=== PATIENT | female | born 1950 | race Two or more races ===

== ENCOUNTER 2017-01-12 22:24 | Emergency (ER) | payer MEDICARE, MEDICAID ==
[~2017-01-12] VITALS: Ht 157.5 cm; Wt 63.5 kg
--- NOTE | 2017-01-12 22:39 | NUR ---
CALLED NURSING SUP. FOR TELE BED
--- NOTE | 2017-01-12 22:43 | NUR ---
PT IS GOING TO CT [facility]IA [facility].
--- NOTE | 2017-01-12 22:58 | NUR ---
PT RETURNED FROM CT.
--- NOTE | 2017-01-12 23:15 | NUR ---
PT STATED THAT SHE FELT LIKE SHE HAD TO PEE. PT PLACED ON BED FAM.
[2017-01-12 23:23] LABS: BASOPHILS # (AUTO) 0.1 /CMM (0.0-0.2); BASOPHILS % (AUTO) 1.1 % (0.0-2.0); EOSINOPHILS # (AUTO) 0.4 /CMM (0.0-0.7); EOSINOPHILS % (AUTO) 4.5 % (0.0-6.0); HEMATOCRIT 36 % (33-45); LYMPHOCYTES # (AUTO) 3.9 /CMM (0.8-4.8); LYMPHOCYTES % (AUTO) 43.6 % (20.0-44.0); MEAN CORPUSCULAR HEMOGLOBIN 29 PG (26.0-33.0); MEAN CORPUSCULAR HGB CONC 33 g/dl (31.0-36.0); MEAN CORPUSCULAR VOLUME 89 fL (82-100); MONOCYTES # (AUTO) 0.5 /CMM (0.1-1.30); MONOCYTES % (AUTO) 5.8 % (2.0-12.0); PLATELET COUNT (AUTO) 286 /CMM (150-450); RDW COEFFICIENT OF VARIATION 13.3 (11.5-15.0); RED BLOOD CELL COUNT(AUTO) 4.08 MIL/uL (4.0-5.2); WHITE BLOOD COUNT (AUTO) 8.9 K/uL (4.3-11.0)
[2017-01-12 23:35] LABS: INR 2.61 (0.87-1.13); PROTHROMBIN TIME 29.7 SECS (9.5-12.7)
[2017-01-12 23:42] LABS: TROPONIN I < 0.017 ng/mL (0.00-0.056)
[2017-01-12 23:45] LABS: CALCIUM, SERUM 8.7 mg/dL (8.5-10.1); CARBON DIOXIDE 26 mmol/L (21-32); CHLORIDE 106 mmol/L (98-107); CREATININE 0.9 mg/dL (0.6-1.3); GLUCOSE 135 mg/dL (74-106); POTASSIUM 4.2 mmol/L (3.5-5.1); SODIUM SERUM 142 mmol/L (136-145); UREA NITROGEN, BLOOD 10 mg/dL (7-18)
[2017-01-12 23:49] LABS: ALANINE AMINOTRANSFERASE 23 U/L (12-78); ALBUMIN 3.4 g/dL (3.4-5.0); ALKALINE PHOSPHATASE 60 U/L (46-116); ASPARTATE AMINOTRANSFERASE 20 U/L (15-37); BILIRUBIN,DIRECT 0.1 mg/dL (0.0-0.2); BILIRUBIN,TOTAL 0.7 mg/dL (0.2-1.0); TOTAL PROTEIN, SERUM 6.9 g/dL (6.4-8.2)
[2017-01-13 00:08] LABS: APPEARANCE,URINE CLEAR (CLEAR); BILIRUBIN,URINE NEGATIVE (NEGATIVE); BLOOD, URINE NEGATIVE Ery/uL (NEGATIVE); COLOR,URINE YELLOW (YELLOW); KETONES,URINE NEGATIVE (NEGATIVE); LEUKOCYTE ESTERASE ,URINE NEGATIVE (NEGATIVE); NITRITE, URINE NEGATIVE (NEGATIVE); PROTEIN,URINE NEGATIVE (NEGATIVE); UGLUCOSE NEGATIVE (NEGATIVE); UROBILINOGEN,URINE 0.2 EU/dL (0.2)
--- NOTE | 2017-01-13 00:25 | NUR ---
Patient does not wish to proceed with medical care recommended by Dr. DIAZ. Patient given information related to possible complications, up to and including , which could occur as a result of leaving the hospital at this time. Patient verbalizes understanding of risks involved due to leaving against medical advice. Patient has signed AMA form.
--- NOTE | 2017-01-13 00:41 | NUR ---
PT WAS ASSISTED INTO HER CLOTHES. PT REC'D PAPER SCRUB PANTS. PT WAS ASSISTED TO THE AND TAKEN TO THE CAR. Patient discharged to home AGAINST DR'S ADVICE. Written and verbal after care instructions given. Patient verbalizes understanding of instruction. PT'S FAMILY EXPRESSED VERBAL UNDERSTANDING. VSS. IV removed. Catheter intact and site benign. Pressure and 4x4 applied to site. No bleeding noted.
[2017-01-13 00:44] VITALS: BP 97/76
== END 2017-01-13 00:45 | disposition home or self-care (01) ==
LOC: ER 22:24
DX: R42 Dizziness and giddiness (principal); R53.1 Weakness; R51 Headache; Z86.73 Personal history of transient ischemic attack (TIA), and cerebral infarction without residual deficits; E11.9 Type 2 diabetes mellitus without complications; I10 Essential (primary) hypertension
CPT/HCPCS: 36415; 70450; 71010; 80048; 80076; 81001; 82962; 84484; 85025; 85730; 87081; 93005; 99285; A4606; 81000-TC; Z7610

== ENCOUNTER 2018-05-10 18:24 | Emergency (ER) | payer MEDICARE, OTHER ==
[~2018-05-10] VITALS: Ht 157.5 cm; Wt 79.4 kg
--- NOTE | 2018-05-10 18:30 | NUR ---
AAOX3, BIB FAMILY FROM HOME C/O L FOOT PAIN S/P GLF, -KO. RR IS EVEN AND UNLABORED WITH NAD NOTED. SKIN IS WARM AND DRY. AWAITING MD FOR EVAL.
--- NOTE | 2018-05-10 18:45 | NUR ---
DR NGO AT BS FOR EVAL.
[2018-05-10] MEDS ORDERED: ONDANSETRON 4 MG TAB.RAPDIS SL ONE (19:00)
[2018-05-10] MEDS ORDERED: HYDROCODONE/APAP 5/325MG 1 EACH TABLET PO ONE (19:00)
[2018-05-10] MEDS ORDERED: HYDROCODONE/APAP 5/325MG 1 EACH TABLET ONE (19:23)
[2018-05-10] MEDS ORDERED: ONDANSETRON 4 MG TAB.RAPDIS ONE (19:23)
--- NOTE | 2018-05-10 20:11 | NUR ---
PT BACK FROM RADIOLOGY. PENDING RESULT.
--- NOTE | 2018-05-10 22:03 | NUR ---
Patient discharged to home in stable condition. Written and verbal after care instructions given. Patient verbalizes understanding of instruction. [facility] AT [facility] TO TAKE PT HOME.
[2018-05-10 22:08] VITALS: BP 143/76
== END 2018-05-10 22:09 | disposition home or self-care (01) ==
LOC: ER 18:30
DX: S62.356A Nondisplaced fracture of shaft of fifth metacarpal bone, right hand, initial encounter for closed fracture (principal); S92.312A Displaced fracture of first metatarsal bone, left foot, initial encounter for closed fracture; I10 Essential (primary) hypertension; E11.9 Type 2 diabetes mellitus without complications; Z86.73 Personal history of transient ischemic attack (TIA), and cerebral infarction without residual deficits; W01.0XXA Fall on same level from slipping, tripping and stumbling without subsequent striking against object, initial encounter; Y93.89 Activity, other specified; Y92.89 Other specified places as the place of occurrence of the external cause; Y99.8 Other external cause status
CPT/HCPCS: 73130-TC; 73620-TC; 73700-TC; A4606; Q0162; Z7610

== ENCOUNTER 2018-11-17 16:18 | Inpatient (IN) | payer MEDICARE, OTHER ==
[~2018-11-17] VITALS: Ht 157.5 cm; Wt 63.5 kg
--- NOTE | 2018-11-17 16:30 | NUR ---
PT BIB FAMILY C/O NAUSEA AND VOMITING SINCE YESTERDAY, PT IS AAOX3 SWAZI SPEAKING ONLY, V/S STABLE, HOOKED TO MONITOR, KEPT RESTED AND COMFORTABLE. WILL CONTINUE TO MONITOR.
--- NOTE | 2018-11-17 16:35 | NUR ---
SEEN AND EXAMINED BY DR. ZHAO.
--- NOTE | 2018-11-17 16:50 | NUR ---
IV LINE ESTABLISHED, LABS DRAWNED AND SENT TO LAB.
[2018-11-17 16:55] LABS: BASOPHILS % (AUTO) 0.3 % (0.0-2.0); EOSINOPHILS % (AUTO) 0.1 % (0.0-6.0); HEMATOCRIT 32 % (33-45); LYMPHOCYTES % (AUTO) 5.9 % (20.0-44.0); MEAN CORPUSCULAR HGB CONC 32 g/dl (31.0-36.0); MEAN CORPUSCULAR VOLUME 84 fL (82-100); MONOCYTES # (AUTO) 0.9 /CMM (0.1-1.30); MONOCYTES % (AUTO) 5.5 % (2.0-12.0); NEUTROPHILS # (AUTO) 14.8 /CMM (1.8-8.9); NEUTROPHILS % (AUTO) 88.2 % (43.0-81.0); PLATELET COUNT (AUTO) 231 /CMM (150-450); RED BLOOD CELL COUNT(AUTO) 3.77 MIL/uL (4.0-5.2); WHITE BLOOD COUNT (AUTO) 16.8 K/uL (4.3-11.0)
[2018-11-17 17:04] LABS: CALCIUM, SERUM 8.9 mg/dL (8.5-10.1); CARBON DIOXIDE 21 mmol/L (21-32); CHLORIDE 102 mmol/L (98-107); CREATININE 1.1 mg/dL (0.6-1.3); GLUCOSE 197 mg/dL (74-106); POTASSIUM 3.9 mmol/L (3.5-5.1); SODIUM SERUM 135 mmol/L (136-145); UREA NITROGEN, BLOOD 15 mg/dL (7-18)
[2018-11-17 17:21] LABS: ALANINE AMINOTRANSFERASE 14 U/L (12-78); ALBUMIN 3.6 g/dL (3.4-5.0); ALKALINE PHOSPHATASE 80 U/L (46-116); ASPARTATE AMINOTRANSFERASE 23 U/L (15-37); BILIRUBIN,DIRECT 0.2 mg/dL (0.0-0.2); BILIRUBIN,TOTAL 1.1 mg/dL (0.2-1.0); TOTAL PROTEIN, SERUM 7.3 g/dL (6.4-8.2)
[2018-11-17] MEDS ORDERED: ONDANSETRON HCL/PF - ER 4 MG/2 ML VIAL IV ONE (17:30)
[2018-11-17] MEDS ORDERED: PIPERACILLIN /TAZOBACTAM 3.375 G in IV D5W 50 ML IV ONE (17:30)
[2018-11-17] MEDS ORDERED: ONDANSETRON HCL/PF 4 MG/2 ML VIAL ONE (17:32)
[2018-11-17 17:40] LABS: BAND % (MANUAL) 3 % (0.0-5.0); LYMPHOCYTES % (MANUAL) 3 % (16-48); MONOCYTES % (MANUAL) 3 % (0-11.0); NEUTROPHILS % (MANUAL) 91 (42-76)
--- NOTE | 2018-11-17 18:02 | NUR ---
URINAL GIVEN BUT UNABLE TO PROVIDE URINE SPECIMEN.
--- NOTE | 2018-11-17 18:02 | NUR ---
PT AND RELATIVE REFUSED KHAN CATH INSERTION TO OBTAINED URINE SPECIMEN.
[2018-11-17] MEDS ORDERED: IV NS 0.9% 1,000 ML BAG IV ONE (18:30)
[2018-11-17] MEDS ORDERED: VANCOMYCIN 1 GM in IV D5W 250 ML IV ONE (19:00)
--- NOTE | 2018-11-17 19:10 | NUR ---
CALLED ERIC TO READ CHEST XRAY. INFORMED THAT IT WAS SIGNED OFF WE SPOKE
[2018-11-17] MEDS ORDERED: CLON0.5T12 PO (19:11)
[2018-11-17] MEDS ORDERED: ATOR10TA PO (19:11)
[2018-11-17] MEDS ORDERED: HYDR-3980 PO (19:11)
[2018-11-17] MEDS ORDERED: CYAN10006 IM (19:11)
[2018-11-17] MEDS ORDERED: GLIP5TAB13 PO (19:11)
[2018-11-17] MEDS ORDERED: MIRT30TA7 PO (19:11)
[2018-11-17] MEDS ORDERED: APIX5TAB PO (19:11)
[2018-11-17] MEDS ORDERED: BACL10TA PO (19:11)
[2018-11-17] MEDS ORDERED: FLUT16SP16 (19:11)
[2018-11-17] MEDS ORDERED: TRAZ-213 PO (19:11)
[2018-11-17] MEDS ORDERED: METF-442 PO (19:11)
[2018-11-17] MEDS ORDERED: PANT40TA4 PO (19:11)
[2018-11-17] MEDS ORDERED: NAPR-1009 PO (19:11)
--- NOTE | 2018-11-17 19:25 | NUR ---
REPORT GIVEN TO CONCHIS GALLARDO FOR KEENAN.
[2018-11-17] MEDS ORDERED: VANCOMYCIN 1 GM VIAL ONE (19:36)
[2018-11-17 19:51] LABS: APPEARANCE,URINE Cloudy (CLEAR); BILIRUBIN,URINE Negative (NEGATIVE); BLOOD, URINE Large Ery/uL (NEGATIVE); COLOR,URINE Yellow (YELLOW); KETONES,URINE 15 (NEGATIVE); LEUKOCYTE ESTERASE ,URINE Large (NEGATIVE); NITRITE, URINE Positive (NEGATIVE); PH,URINE 5.5 (5.0-8.0); PROTEIN,URINE >=300 mg/dl (NEGATIVE); UGLUCOSE Negative (NEGATIVE); UROBILINOGEN,URINE 0.2 EU/dL (0.2)
--- NOTE | 2018-11-17 19:59 | NUR ---
PT RESTING IN BED, NAD NOTED. WILL CONTINUE TO MONITOR.
[2018-11-17 20:00] LABS: BACTERIA,URINE Rare /HPF (None Seen); RBC,URINE 81-100 /HPF (0-2); SQUAMOUS EPITHELIAL CELL,UR Rare /HPF (None Seen); WBC,URINE TOO NUMEROUS TO COUN /HPF (0-3)
--- NOTE | 2018-11-17 20:13 | NUR ---
Markos avila in [place] - 11/17/18 at 2016 by DENISE DIANE BED 314-2 GIVEN
--- NOTE | 2018-11-17 20:31 | NUR ---
CALLED [employer]. CRUISE COUNSELOR WAS PAGED.
--- NOTE | 2018-11-17 21:14 | NUR ---
MS BED 314-1
--- NOTE | 2018-11-17 21:19 | NUR ---
MS BED CHANGED 324-1
--- NOTE | 2018-11-17 21:25 | NUR ---
Report given to Macey BALDERRAMA for KEENAN.
[2018-11-17 22:00] VITALS: BP 117/74
--- NOTE | 2018-11-17 22:00 | NUR ---
RESIDENTIAL MORTGAGE MANAGERWHEEL FILLER NOTES ADMITTED FROM ER THIS 68 YO MALE ,ALERT,ORIENTED X3,ACCOMPANIED BY ,FARSI SPEAKING,INTERVIEWED BY CONCHIS LONG WHO SPEAK FARSI. CHIEF COMPLAINTS OF NAUSEA,VOMITING STARTED YESTERDAY.WITH SALINE LOCK RIGHT AC INTACT AND PATENT.NOTED SKIN DRYNESS ON BOTH HANDS,OTHERWISE SKIN INTACT.PER FAMILY,PATIENT WALK WITH WALKER, AND USE WHEELCHAIR WELL DUE LEFT SIDED WEAKNESS FROM PREVIOUS CVA.FALL PRECAUTION OBSERVED,CALL LIGHT IN REACH,NEEDS ANTICIPATED.
[2018-11-17 22:15] VITALS: BP 117/76
[2018-11-17] MEDS ORDERED: clonazePAM 0.5 MG TABLET PO PRN (22:30)
[2018-11-17] MEDS ORDERED: TRAZODONE 50 MG TABLET PO PRN (22:30)
[2018-11-17] MEDS ORDERED: FLUTICASONE PROPIONATE 16 GM BOTTLE NS PRN (22:30)
[2018-11-17] MEDS ORDERED: ONDANSETRON HCL/PF 4 MG/2 ML VIAL IVP PRN (23:00)
[2018-11-17] MEDS ORDERED: MORPHINE SULFATE INJ 2 MG/ML DISP.SYRIN IV PRN (23:00)
[2018-11-17] MEDS ORDERED: DEXTROSE 50%-WATER 50 ML DISP.SYRIN IV PRN (23:00)
[2018-11-17] MEDS: IV 1/2NS 1000 ML 1,000 ML IV PRN (23:07)
--- NOTE | 2018-11-18 | NUR ---
TOOL GRINDER OPERATOR SURFACE NOTES ORAL TEMPERATURE POST TYLENOL 100.9
[2018-11-18] MEDS: ACETAMINOPHEN 325 MG TABLET PO PRN ×3 (00:10→22:22)
--- NOTE | 2018-11-18 00:10 | NUR ---
ASSEMBLY MACHINE OPERATOR NOTES ORAL TEMP OF 101.7,BLOOD CULTURE PENDING RESULT.MEDICATED WITH TYLENOL 65OMG PO ORDERED FOR INCREASED TEMP
[2018-11-18 01:01] VITALS: BP 96/45
[2018-11-18 04:21] VITALS: BP 100/54
--- NOTE | 2018-11-18 05:00 | NUR ---
PHP MYSQL WEB DEVELOPER NOTES LATEST ORAL TEMPERATURE 99.8.
[2018-11-18] MEDS ORDERED: PIPERACILLIN /TAZOBACTAM 3.375 G VIAL IV ONE (05:10)
[2018-11-18] MEDS: PIPERACILLIN /TAZOBACTAM 3.375 G in IV D5W 50 ML IV SCH ×3 (05:30→20:30)
--- NOTE | 2018-11-18 05:30 | NUR ---
BANDAGE MAKER NOTES IV SITE INFILTRATED.NEW SALINE LOCK PLACE ON RIGHT FOREARM #22.IVF RE STARTED.
--- NOTE | 2018-11-18 06:39 | NUR ---
MS RN NOTES AFEBRILE 99.8,NO SOB. AT BEDSIDE,IN NO ACUTE DISTRESS.SR 90 ON TELE MONITOR.WILL ENDORSE TO DAY NURSE FOR KEENAN.
[2018-11-18 07:14] LABS: BASOPHILS % (AUTO) 0.2 % (0.0-2.0); EOSINOPHILS % (AUTO) 0.1 % (0.0-6.0); HEMATOCRIT 26 % (33-45); HEMOGLOBIN 8.4 g/dL (11.5-14.8); LYMPHOCYTES # (AUTO) 1.3 /CMM (0.8-4.8); LYMPHOCYTES % (AUTO) 7.5 % (20.0-44.0); MEAN CORPUSCULAR HGB CONC 32 g/dl (31.0-36.0); MEAN CORPUSCULAR VOLUME 84 fL (82-100); MONOCYTES % (AUTO) 5.8 % (2.0-12.0); NEUTROPHILS # (AUTO) 14.6 /CMM (1.8-8.9); NEUTROPHILS % (AUTO) 86.4 % (43.0-81.0); PLATELET COUNT (AUTO) 174 /CMM (150-450); RED BLOOD CELL COUNT(AUTO) 3.14 MIL/uL (4.0-5.2); WHITE BLOOD COUNT (AUTO) 16.9 K/uL (4.3-11.0)
[2018-11-18 07:46] LABS: ALBUMIN 2.7 g/dL (3.4-5.0); BILIRUBIN,TOTAL 1.1 mg/dL (0.2-1.0); CALCIUM, SERUM 8.3 mg/dL (8.5-10.1); MAGNESIUM 1.7 mg/dL (1.8-2.4); PHOSPHORUS 3.8 mg/dL (2.5-4.9); POTASSIUM 3.2 mmol/L (3.5-5.1); TOTAL PROTEIN, SERUM 5.8 g/dL (6.4-8.2)
[2018-11-18] MEDS: PANTOPRAZOLE 40 MG TABLET.DR PO SCH (07:50)
[2018-11-18] MEDS: BLOOD SUGAR DIAGNOSTIC 1 EACH STRIP IN SCH ×4 (07:50→22:21)
[2018-11-18 08:00] VITALS: BP 100/60
--- NOTE | 2018-11-18 08:02 | NUR ---
RN opening note Patient seen bed down locked in low position call light in reach. patient on 2lnc in no apparent distress semifowlers position. patient is incontinent. lef tsided wekaness form previous stroke. is at the bedside ivf infusing to right fa with no s/s of infiltration. noted to have mild temp of 99.5
[2018-11-18 08:20] LABS: THYROID STIMULATING HORMONE 0.529 uIU/mL (0.358-3.74)
[2018-11-18] MEDS ORDERED: FEE PK DOSING 1 MIN EA MC ONE (08:33)
[2018-11-18] MEDS ORDERED: glipiZIDE 5 MG TABLET PO SCH (09:00)
[2018-11-18] MEDS: VANCOMYCIN 0.75 GM in IV D5W 250 ML IV SCH ×2 (09:01→21:36)
[2018-11-18] MEDS: BACLOFEN (10 MG) 10 MG TABLET PO SCH ×2 (09:03→16:29)
[2018-11-18] MEDS: APIXABAN 5 MG TABLET PO SCH ×2 (09:03→16:21)
[2018-11-18] MEDS: METFORMIN 500 MG TABLET PO SCH ×2 (09:03→16:27)
[2018-11-18] MEDS: INSULIN REGULAR, HUMAN 100 UNIT/ML 3 ML VIAL SQ PRN ×2 (09:04→12:11)
[2018-11-18] MEDS: Magnesium 1GM/D5W 100ML PREMIX 100 ML IV SCH ×2 (11:58→15:11)
[2018-11-18] MEDS: POTASSIUM CHLORIDE 20 MEQ TAB.PRT.SR PO SCH ×2 (11:58→13:30)
[2018-11-18] MEDS ORDERED: IV NS 0.9% 1,000 ML BAG IV STA (12:26)
--- NOTE | 2018-11-18 14:48 | NUR ---
MS RN NOTES PATIENT NOTES WITH LACTIC ACID OF 4.1 SANTANA CHILDS NOTIFIED ORDERS RECEIVED FOR 1L OF NS STAT. ALSO PATIENT NOTES WITH TEMP OF 102.1 TYLENOL ADMINISTERED AND COOLING MEASURES PROVIDED. WILL CONTINUE TO MONITOR.
[2018-11-18] MEDS ORDERED: PRAZ1CAP5 PO (15:24)
[2018-11-18] MEDS ORDERED: ESCI10TA PO (15:24)
[2018-11-18] MEDS ORDERED: HYDR25CA PO (15:24)
[2018-11-18] MEDS ORDERED: METF-440 PO (15:24)
[2018-11-18] MEDS ORDERED: TRIA15OI2 TP (15:24)
[2018-11-18 16:00] VITALS: BP 100/46
--- NOTE | 2018-11-18 16:00 | NUR ---
MS RN NOTES LACTIC ACID RECHECKED NOTED TO BE 2.4 TEMP IS DECREASING WILL CONTINUE TO MONITOR. PATIENT ALERT, ORIENTEDX3 IN BED RESTING. NO SIGNS OR SYMPTOMS OF DISTRESS NOTED. WILL CONTINUE TO MONITOR.
--- NOTE | 2018-11-18 17:00 | NUR ---
MS RN NOTES TEMP RECHECKED NOTES 99.3 WILL CONTINUE TO MONITOR.
--- NOTE | 2018-11-18 19:00 | NUR ---
MS RN NOTES PATIENT IN BED RESTING NO SOB OR ACUTE DISTRESS NOTED. ALL DUE MEDICATIONS ADMINISTERED. ALL NEEDS MET. ENDORSED CARE TO PM SHIFT.
--- NOTE | 2018-11-18 19:40 | NUR ---
RECEIVED PT IN BED AWAKE AND RESPONSIVE, WITH FAMILY AT THE BED SIDE, BREATHING EVENLY. NO SOB. NAD .SKIN WARM AND DRY, STILL RUNNING FEVER. COOLING MEASURES PROVIDED. KEPT ROOM NICE AND COLD. PT WITH C/O CHRONIC BACH, NECK AND HEAD PAIN . ON ONGOING IVF HYDRATION . HUSSAIN WELL. IV SITE INTACT AND PATENT. NEEDS ATTENDED. CALL LIGHT WITHIN REACH,. WILL CONT TO MONITOR ,
[2018-11-18 20:00] VITALS: BP 109/44
[2018-11-18] MEDS: ATORVASTATIN 10 MG TABLET PO SCH (21:37)
[2018-11-18] MEDS ORDERED: MIRTAZAPINE 15 MG TABLET PO SCH (22:00)
--- NOTE | 2018-11-18 22:23 | NUR ---
TYLENOL GIVEN ORDERED PER PT'S REQUEST FOR C/O HEAD AND NECK PAIN. WILL CONT TO MONITOR ,
--- NOTE | 2018-11-19 02:55 | NUR ---
pt in bed sleeping w/ NAD. will cont to monitor , son at the bed side
[2018-11-19] MEDS: PIPERACILLIN /TAZOBACTAM 3.375 G in IV D5W 50 ML IV SCH ×2 (05:37→13:44)
--- NOTE | 2018-11-19 06:20 | NUR ---
PT IN BED SLEEPING. BREATHING EVENLY. NO ACUTE EVENT DURING THE NIGHT. STABLE. CLEANED AND DRIED. MEDICATED ORDERED. SON AT THE BED SIDE. BED LOW LOCKED. SRX2. CALL LIGHT WITHIN REACH. WILL CONT TO MONITOR AND WILL ENDORSE TO AM SHIFT FOR KEENAN.
--- NOTE | 2018-11-19 08:00 | NUR ---
m/s ecommerce project manager: initial assessment received pt in bed awake, a/ox2-3 farsi speaking only. no c/o pain or any discomfort. daughter frequently check on her mom for status update and updated plan of care at this time. reality orientation provided prn. instructed to call for assistance. will continue to monitor.
[2018-11-19 08:22] VITALS: BP 117/57
[2018-11-19] MEDS: BLOOD SUGAR DIAGNOSTIC 1 EACH STRIP IN SCH ×4 (08:28→22:15)
--- NOTE | 2018-11-19 10:30 | NUR ---
m/s clean room operator: md visit seen and examined by jorge luis (acnp) at this time and informed noodle maker re: daughter wants to be call, stated, "i will call her later."
[2018-11-19] MEDS: METFORMIN 500 MG TABLET PO SCH ×2 (10:44→16:46)
[2018-11-19] MEDS: PANTOPRAZOLE 40 MG TABLET.DR PO SCH (10:44)
[2018-11-19] MEDS: BACLOFEN (10 MG) 10 MG TABLET PO SCH ×2 (10:44→16:46)
[2018-11-19] MEDS: LACTOBACILLUS RHAMNOSUS GG 1 EACH CAP.SPRINK PO SCH ×2 (10:44→16:46)
[2018-11-19 10:48] LABS: BASOPHILS % (AUTO) 0.4 % (0.0-2.0); EOSINOPHILS % (AUTO) 1.7 % (0.0-6.0); HEMATOCRIT 28 % (33-45); HEMOGLOBIN 9.1 g/dL (11.5-14.8); LYMPHOCYTES # (AUTO) 1.1 /CMM (0.8-4.8); LYMPHOCYTES % (AUTO) 11.8 % (20.0-44.0); MEAN CORPUSCULAR HGB CONC 33 g/dl (31.0-36.0); MEAN CORPUSCULAR VOLUME 83 fL (82-100); MONOCYTES # (AUTO) 0.7 /CMM (0.1-1.30); NEUTROPHILS # (AUTO) 7.7 /CMM (1.8-8.9); NEUTROPHILS % (AUTO) 79.1 % (43.0-81.0); PLATELET COUNT (AUTO) 154 /CMM (150-450); RED BLOOD CELL COUNT(AUTO) 3.36 MIL/uL (4.0-5.2); WHITE BLOOD COUNT (AUTO) 9.7 K/uL (4.3-11.0)
[2018-11-19] MEDS: VANCOMYCIN 0.75 GM in IV D5W 250 ML IV SCH (10:51)
--- NOTE | 2018-11-19 11:00 | NUR ---
m/s inter com installer: notes debbie (daughter) called and informed her that the hospitalist will call her later as stated. phone transferred to pt per request. will continue to monitor.
[2018-11-19] MEDS: INSULIN REGULAR, HUMAN 100 UNIT/ML 3 ML VIAL SQ PRN ×2 (12:09→17:14)
--- NOTE | 2018-11-19 12:30 | NUR ---
m/s audio visual aids director: id f/u seen by tomasz (manager sound) at this time.
[2018-11-19] MEDS: ACETAMINOPHEN 325 MG TABLET PO PRN ×2 (13:28→22:15)
--- NOTE | 2018-11-19 13:30 | NUR ---
m/s extract mixer: notes grandson visiting at this time. pt resting comfortable at this time. call light within reach.
--- NOTE | 2018-11-19 15:30 | NUR ---
m/s hack driver: notes pt resting comfortable in bed with no distress noted. instructed to call for assistance. will monitor.
[2018-11-19] MEDS: CEFTRIAXONE 1 G in IV D5W 50 ML IV SCH (15:33)
[2018-11-19 15:43] VITALS: BP 114/68
[2018-11-19] MEDS: IV 1/2NS 1000 ML 1,000 ML IV PRN (16:45)
[2018-11-19 16:57] LABS: CALCIUM, SERUM 8.1 mg/dL (8.5-10.1); MAGNESIUM 2.1 mg/dL (1.8-2.4); PHOSPHORUS 2.3 mg/dL (2.5-4.9); POTASSIUM 3.8 mmol/L (3.5-5.1)
--- NOTE | 2018-11-19 17:45 | NUR ---
m/s diver helper: notes family at bedside at this time. pt resting comfortable. instructed to call for assistance. will monitor.
--- NOTE | 2018-11-19 19:00 | NUR ---
m/s lift supervisor: notes bedside report given to emilia (joseph) for continuity of care. friend at bedside at this time. call light within reach.
--- NOTE | 2018-11-19 19:15 | NUR ---
MS AIRCRAFT FUELER INITIAL NOTES SEEN PT IN BED AWAKE AND ALERT WHILE GETTING REPORT FORM AM NURSE ERIC. PT SPEAK ONLY FARSI BUT FAMILY AT THE BEDSIDE RIGHT NOW HELPED TO TRANSLATE. DENIES ANY PAIN OR ANY DISCOMFORT AT THIS TIME. THE ONLY CONCERNED AT THIS TIME IF THEY CAN SPEAK TO THE UROLOGY .I TOLD THEM IF THEY HAVE ANY CONCERNED AT THIS TIME I WILL ADDRESS IT IN THE MORNING AND AT THE SAME TIME I LET THE CHARGE NURSE TALK TO THEM REGARDING THE RESULT OF CONSULTATION. PT HAD ALSO IVF OF 1/2 NS AT 100ML/HR INFUSING ON HER LEFT FOREARM AND HEPLOCK ON HER RIGHT FOREARM PATENT AND INTACT. KEPT HER WARM AND COMFORTABLE AT ALL TIMES. PLACE CALL LIGHT AT REACH. DAUGHTER REQUESTED ALSO A CHUN CHAIR THAT HIS DAD CAN SLEEP TONIGHT. WILL CONTINUE MONITORING.
[2018-11-19 20:03] VITALS: BP 124/84
[2018-11-19] MEDS: ATORVASTATIN 10 MG TABLET PO SCH (22:15)
--- NOTE | 2018-11-19 22:30 | NUR ---
MS ELECTROMYOGRAPHIC TECHNICIAN NOTES ROUTINE MEDS AND TYLENOL FOR MILD PAIN ON HER KNEE GIVEN . BLOOD SUGAR CHECKED DONE 97, NO INSULIN DUE AT THIS TIME. NO SIGNS OF HYPO GLYCEMIA NOTED. IVF STILL INFUSING. KEPT HER WARM AND COMFORTABLE AT ALL TIMES. WILL CONTINUE MONITORING. FAMILY AT THE BEDSIDE.
--- NOTE | 2018-11-20 01:15 | NUR ---
MS BRITNI NOTES PT GRANDSON AT THE BEDSIDE AND CALLED PT SEEMS ANXIOUS, KLONOPIN PO GIVEN ORDERED. NO SIGNS OF ANY ACUTE DISTRESS OR ANY DISCOMFORT NOTED. WILL CONTINUE MONITORING.
--- NOTE | 2018-11-20 03:00 | NUR ---
MS MANAGED CARE ANALYST NOTES PT SLEEPING COMFORTABLY IN BED WITHOUT ANY ACUTE DISTRESS NOTED. IVF STILL INFUSING. GRANDSON AT THE BEDSIDE . WILL CONTINUE MONITORING.
[2018-11-20] MEDS: IV 1/2NS 1000 ML 1,000 ML IV PRN (03:08)
--- NOTE | 2018-11-20 07:00 | NUR ---
MS PARTS COUNTER REPRESENTATIVE CLOSING NOTES PT REMAINS SLEEPING AND STABLE CARTER THE NIGHT. ALL DUE MEDS GIVEN AND ALL NEES MET. BLOOD SUGAR CHECKED DONE 83, NO INSULIN COVERAGES AT THIS TIME. NO SIGNS OF HYPO GLYCEMIA NOTED. ENDORSE TO AM NURSE FOR CONTINUITY OF CARE. GRANDSON JUST CAME BACK AFTER HE WENT DOWN EARLIER AND ASKING FOR PRIVATE ROOM . WE TOLD HIM THAT WE JUST WAIT FOR THE CHARGE NURSE AFTER THE REPORT AND LET HER KNOW HIS CONCERN. .
[2018-11-20 07:05] LABS: CALCIUM, SERUM 8.4 mg/dL (8.5-10.1); CREATININE 0.9 mg/dL (0.6-1.3); POTASSIUM 4.2 mmol/L (3.5-5.1)
[2018-11-20] MEDS: BLOOD SUGAR DIAGNOSTIC 1 EACH STRIP IN SCH ×2 (07:32→11:48)
[2018-11-20 08:00] VITALS: BP 139/69
--- NOTE | 2018-11-20 08:00 | NUR ---
rn open note. elva at the bedside requesting patient be transferred to private room, charge nurse notified, but grandson informed that such a room can not be guaranteed but willl try to make avvailalbe. reviewed poc with grandson. . patient is farsi speaking only. per grandson patient is alert and oriented. patient in bed resting in no apparent dsitress. on 2lnc breathing regularyly non labored. will cont to monitor.
[2018-11-20] MEDS: LACTOBACILLUS RHAMNOSUS GG 1 EACH CAP.SPRINK PO SCH (10:07)
[2018-11-20] MEDS: PANTOPRAZOLE 40 MG TABLET.DR PO SCH (10:07)
[2018-11-20] MEDS: METFORMIN 500 MG TABLET PO SCH (10:08)
[2018-11-20] MEDS: BACLOFEN (10 MG) 10 MG TABLET PO SCH (10:08)
[2018-11-20 10:36] LABS: BASOPHILS % (AUTO) 0.3 % (0.0-2.0); EOSINOPHILS % (AUTO) 4.2 % (0.0-6.0); HEMATOCRIT 27 % (33-45); HEMOGLOBIN 8.7 g/dL (11.5-14.8); LYMPHOCYTES % (AUTO) 14.5 % (20.0-44.0); MEAN CORPUSCULAR HGB CONC 33 g/dl (31.0-36.0); MEAN CORPUSCULAR VOLUME 82 fL (82-100); MONOCYTES # (AUTO) 0.5 /CMM (0.1-1.30); MONOCYTES % (AUTO) 6.8 % (2.0-12.0); NEUTROPHILS # (AUTO) 5.4 /CMM (1.8-8.9); NEUTROPHILS % (AUTO) 74.2 % (43.0-81.0); PLATELET COUNT (AUTO) 168 /CMM (150-450); RED BLOOD CELL COUNT(AUTO) 3.23 MIL/uL (4.0-5.2); WHITE BLOOD COUNT (AUTO) 7.2 K/uL (4.3-11.0)
[2018-11-20] MEDS: CEFTRIAXONE 1 G in IV D5W 50 ML IV SCH (14:49)
--- NOTE | 2018-11-20 16:15 | NUR ---
MS RN NOTES PATIENT DISCHARGED HOME WITH DAUGHTER AND . PATIENT ALERT, ORIENTED X2 FARSI SPEAKING. ALL DISCHARGE INSTRUCTION PROVIDED TO DAUGHTER AND PATIENT. PATIENTS DAUGHTER SPOKE TO ZOILA ESCUDERO REGARDING DISCHARGE CARE AND INSTRUCTIONS. MD AWARE OF ALL ABNORMAL TEST. DISCHARGE PROTOCOL FOLLOWED. ALL BELONGINGS ACCOUNTED FOR, BELONGING LIST SIGNED. PERIPHERAL IV REMOVED WITH MINIMAL BLEEDING. ID BAND REMOVED. PATIENT ESCORTED TO CAR BY HOUSEKEEPING SUPERVISOR HOTEL.
== END 2018-11-20 16:15 | disposition home or self-care (01) | DRG 871 ==
LOC: ER 16:22 → TELE 21:27 → MED 11-18 12:10
PROVIDERS: ADMIT Internal Medicine; ATTEND Nurse Practitioner Acute Care
DX: A41.9 Sepsis, unspecified organism (principal); G92 Toxic encephalopathy; E87.2 Acidosis; D68.59 Other primary thrombophilia; E87.1 Hypo-osmolality and hyponatremia; N39.0 Urinary tract infection, site not specified; I69.354 Hemiplegia and hemiparesis following cerebral infarction affecting left non-dominant side; R65.20 Severe sepsis without septic shock; I48.91 Unspecified atrial fibrillation; E11.9 Type 2 diabetes mellitus without complications; D50.9 Iron deficiency anemia, unspecified; B96.20 Unspecified Escherichia coli [E. coli] as the cause of diseases classified elsewhere; E78.5 Hyperlipidemia, unspecified; G89.4 Chronic pain syndrome; I10 Essential (primary) hypertension; K21.9 Gastro-esophageal reflux disease without esophagitis; Z79.84 Long term (current) use of oral hypoglycemic drugs; K80.20 Calculus of gallbladder without cholecystitis without obstruction; M81.0 Age-related osteoporosis without current pathological fracture; Z87.442 Personal history of urinary calculi; E86.1 Hypovolemia; N20.0 Calculus of kidney; F01.50 Vascular dementia, unspecified severity, without behavioral disturbance, psychotic disturbance, mood disturbance, and anxiety; D63.8 Anemia in other chronic diseases classified elsewhere; M51.36 Other intervertebral disc degeneration, lumbar region; Z79.01 Long term (current) use of anticoagulants
CPT/HCPCS: 36415; 70450-TC; 71045-TC; 80048-TC; 80053-TC; 80061-TC; 80076-TC; 80202-TC; 81000-TC; 82962-TC; 83540-TC; 83605-TC; 83735-TC; 84100-TC; 84443-TC; 84484-TC; 85025-TC; 85730-TC; 87040-TC; 87081-TC; 87086-TC; 87186-TC; 97116-TC; 97530-TC; G0378; J0696; J1815; J2405; J2543; J3370; J3475; J3490; J7030; J7060